=== PATIENT | male | born 1980 | race Caucasian/White ===

== ENCOUNTER → 2025-02-18 06:41 | Outpatient (REF) | payer OTHER, SELFPAY | LOC: MRI 3T 06:41 | PROVIDERS: ATTENDING PHYSICIAN Nurse Practitioner Adult Health | DX: S46.191A Other injury of muscle, fascia and tendon of long head of biceps, right arm, initial encounter (principal); M75.21 Bicipital tendinitis, right shoulder | CPT/HCPCS: 73218; 73221 ==